=== PATIENT | female | born 1930 | race Caucasian/White ===

== ENCOUNTER 2018-04-09 08:46 | Inpatient (IN) | payer OTHER ==
[~2018-04-09] VITALS: Ht 149.9 cm; Wt 71.8 kg
[2018-04-09] MEDS ORDERED: ASPIRIN81 M4 PO (09:01)
[2018-04-09] MEDS ORDERED: COREG6.25 M1 PO (09:02)
[2018-04-09] MEDS ORDERED: CALCIUM600 M3 PO (09:02)
[2018-04-09] MEDS ORDERED: FOLIC ACID0.8 M2 PO (09:03)
[2018-04-09] MEDS ORDERED: GLUCOSAMINE1000 MG PO (09:03)
[2018-04-09] MEDS ORDERED: LOVASTATIN40 M1 PO (09:03)
[2018-04-09] MEDS ORDERED: METHOTREXATE2.5 M2 PO (09:04)
[2018-04-09] MEDS ORDERED: MULTIVITAMINS1 EAC9 PO (09:04)
[2018-04-09] MEDS ORDERED: DIOVAN40 MG PO (09:05)
[2018-04-09] MEDS ORDERED: NAPROXEN250 M1 PO (09:05)
[2018-04-09] MEDS ORDERED: PREDNISONE5 M1 PO (09:05)
--- NOTE | 2018-04-09 09:12 | ED MVC/FALL/TRAUMA COMPLAINT ---
History of Present Illness General Chief Complaint: General Adult Stated Complaint: CLINT S/P FALL - BACK PAIN Source: patient, family Exam Limitations: no limitations Vital Signs & Intake/Output Vital Signs & Intake/Output Vital Signs Date Time Temp Pulse Resp B/P B/P Pulse O2 O2 Flow FiO2 Mean Ox Delivery Rate 04/09 1605 98.2 78 17 126/59 96 Room Air 04/09 1457 98.2 75 16 124/58 97 Room Air 04/09 1354 98.2 81 14 125/58 94 Room Air 04/09 1106 97.6 79 16 124/60 100 Room Air / 0855 98 Room Air 04/09 0848 97.7 80 18 151/67 97 Room Air Allergies Coded Allergies: NO KNOWN ALLERGIES (11/08/14) Reconcile Medications Aspirin (Aspirin*) 81 MG TAB.CHEW 1 TAB PO DAILY CARDIAC (Reported) Calcium (Elemental-Fr Calcarb) (Calcium) 600 MG CALCIUM (1,500 MG) TABLET 2 TAB PO DAILY SUPPLEMENT (Reported) Carvedilol (Coreg) 6.25 MG TABLET 1 TAB PO BID CARDIAC (Reported) Folic Acid 0.8 MG TABLET 1 TAB PO DAILY SUPPLEMENT (Reported) Glucosamine Sulfate 2KCL (Glucosamine) 1,000 MG TABLET 1.5 TAB PO BID SUPPLEMENT (Reported) Lovastatin 40 MG TABLET 1 TAB PO DAILY CHOLESTEROL (Reported) Methotrexate 2.5 MG TABLET 2 TAB PO SEE ADMIN CRITERIA RA (Reported) TAKE 2 TABLETS BY MOUTH EVERY 7 DAYS Multiple Vitamin (Multivitamins) 1 EACH TABLET 1 TAB PO DAILY SUPPLEMENT ( Reported) Naproxen 250 MG TABLET 1 TAB PO DAILY PAIN (Reported) Prednisone 5 MG TABLET 1 TAB PO DAILY RA (Reported) Valsartan (Diovan) 40 MG TABLET 1 TAB PO BID HTN/HEART FAILURE (Reported) Triage Note: 87 Y/O FEMALE CLINT FROM HOME FOR EVAL OF LOW/MID BACK PAIN S/P FALL ON TUESDAY. PT ARRIVES A/O X 4, SPEAKING WITH NO DISTRESS OR DEFICITS NOTED. PT STATES SHE WAS AT HER OTHER DAUGHTERS HOUSE TUESDAY, REACHED FOR A WATER BOTTLE "AND JUST KEPT GOING". SUSTAINED FALL OUT OF BED ONTO FLOOR; WAS ABLE TO BE ASSISTED BACK INTO BED. HAS BEEN AMBULATORY SINCE FALL HOWEVER REPORTS WORSENING MID/LOW BACK PAIN. LARGE BRUISE NOTED TO R UPPER ARM, APPEARS TO BE HEALING WITH YELLOW BORDERS. PT HAS NOT TAKEN MEDS FOR PAIN TODAY AWAITING EVAL Triage Nurses Notes Reviewed? yes HPI: 87-year-old female with history of rheumatoid arthritis, hypertension, "weak left heart", and hyperlipidemia, presenting with her family reporting history of mechanical fall on Tuesday night. Patient reports she was laying in bed and went to reach over to grab something on the nightstand and had fallen onto her knees. She denies any head trauma or loss of consciousness. She denies any dizziness or lightheaded prior to falling. She reports increasing back pain over the last year, and after this fall the pain has significantly increased. She currently reports pain 10 out of 1 and worse with movement, improves with rest. Start ibuprofen and naproxen without any relief. (Noelle Batista) Past History Travel History Traveled to [place] past 21 day No Medical History Any Pertinent Medical History? 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 No (Noelle Batista) Review of Systems Review of Systems Constitutional: Reports: see HPI. Eyes: Reports: no symptoms. Ears, Nose, Throat, Mouth: Reports: no symptoms. Respiratory: Reports: no symptoms. Cardiovascular: Reports: no symptoms. Gastrointestinal/Abdominal: Reports: no symptoms. Genitourinary: Reports: no symptoms. Musculoskeletal: Reports: see HPI. Skin: Reports: no symptoms. Neurological/Psychological: Reports: no symptoms. All Other Systems: Reviewed and Negative (Noelle Batista) Physical Exam Physical Exam General Appearance: well developed/nourished, no apparent distress, alert, awake , mild distress Head: atraumatic, normal appearance Eyes: Bilateral: normal appearance, EOMI. Ears, Nose, Throat, Mouth: hearing grossly normal Neck: normal inspection, supple, full range of motion, non-tender, no bony prominences or step-offs Respiratory: normal breath sounds, chest non-tender, no respiratory distress Cardiovascular: regular rate/rhythm, normal peripheral pulses Peripheral Pulses: 3+ radial (R), 3+ radial (L), 3+ dorsalis pedis (R), 3+ dorsalis pedis (L) Gastrointestinal: soft, non-tender Back: unable to examine given patient's inability to move d/t pain. will await xray results prior to thorough exam. Extremities: normal range of motion, rheumatoid nodules on hands Neurologic/Psych: no motor/sensory deficits, awake, alert, oriented x 3, normal mood/affect Skin: intact, normal color, warm/dry Core Measures ACS in differential dx? No CVA/TIA Diagnosis No Sepsis Present: No Sepsis Focused Exam Completed? No (Hope LOVE,Noelle) Progress Differential Diagnosis: C/T/L spine injury, ext injury, pelvis injury Plan of Care: Orders Procedure Date/time Status Regular Diet 04/09 L Complete Regular Diet 04/09 D Active Weight 04/09 1702 Active Vital Signs 04/09 1702 Active Teach/Educate 04/09 170 Active Pain Treatment and Response 04/09 170 Active Nutritional Intake, Monitor 04/09 170 Active Isolation 04/09 1702 Active Intake & Output 04/09 1702 Active Patient Care Conference 04/09 1702 Active Activity/Ambulation 04/09 1702 Active Pathway - chart 04/09 1617 Active House Staff 04/09 1617 Active Patient Data 04/09 1617 Active Code Status 04/09 1617 Active Patient Data 04/09 1555 Active OXYGEN SETUP (GEN) 04/09 1358 Active Saline Lock 04/09 1358 Active Admit to inpatient 04/09 1358 Active Vital Signs 04/09 1358 Active Activity/Ambulation 04/09 1358 Active Code Status 04/09 1358 Complete URINALYSIS 04/09 0948 Complete LIPASE 04/09 0928 Complete COMPREHENSIVE METABOLIC PANEL 04/09 0928 Complete CBC WITHOUT DIFFERENTIAL 04/09 0928 Complete VTE Mechanical Prophylaxis 04/09 UNK Active Vital Signs 04/09 UNK Active Intake & Output 04/09 UNK Active Activity/Ambulation 04/09 UNK Active Current Medications Sig/Elaina Start time Last Medication Dose Stop Time Status Admin Lorazepam 0.5 MG Q4P PRN 04/09 1045 AC 04/09 (Ativan) 1043 Ketorolac 30 MG ONCE ONE 04/09 0930 CAN Tromethamine 04/09 0931 (Toradol) Laboratory Tests 04/09/18 1035: Anion Gap 7, Estimated GFR > 60, BUN/Creatinine Ratio 40.0 H, Glucose 104 H, Calcium 8.1 L, Total Bilirubin 0.7, AST 18, ALT 33, Alkaline Phosphatase 43, Total Protein 5.1 L, Albumin 2.9 L, Globulin 2.2, Albumin/Globulin Ratio 1.3, Lipase 21 L, CBC w Diff NO MAN DIFF REQ, RBC 3.89 L, MCV 93.4, MCH 30.9, MCHC 33.0, RDW 14.4, MPV 7.7, Gran % 77.2 H, Lymphocytes % 9.3 L, Monocytes % 8.5, Eosinophils % 4.6, Basophils % 0.4, Absolute Granulocytes 8.6 H, Absolute Lymphocytes 1.0 L, Absolute Monocytes 0.9 H, Absolute Eosinophils 0.5, Absolute Basophils 0 04/09/18 1012: Urine Color STRAW, Urine Clarity CLEAR, Urine pH 7.5, Ur Specific [place] 1.010, Urine Protein NEG, Urine Ketones NEG, Urine Nitrite NEG, Urine Bilirubin NEG, Urine Urobilinogen 0.2, Ur Leukocyte Esterase NEG, Ur Microscopic EXAM NOT REQUIRED, Urine Hemoglobin NEG, Urine Glucose NEG 87 year old female with back pain s/p mechanical fall 4 days ago, history significant for rheumatoid and osteoarthritis. Back pain is been occurring over the last year and increasing in severity, however after recent fall patient had reported worsening pain. -Patient's pain continues to be uncontrolled with toradol, given IV morphine 2mg and ativan. -Patient continues to report pain 7/10 in her back after meds. D/w family that imaging unremarkable compared to prior imaging, pt has known osteoarthritis and rheumatoid arthritis. -Patient administered morphine 4mg and lidoderm patch. Awaiting case management for admission or obs. -Spoke with hospitalist and MOD for admission to [facility]. Diagnostic Imaging: Viewed by Me: Radiology Read. Discussed w/RAD: Radiology Read. Radiology Impression: PATIENT: JACKSON REVELES PRESENT AGE: 87 PATIENT ACCOUNT NO: [id number] : 31 LOCATION: [facility] ORDERING PHYSICIAN: Noelle LOVE SERVICE DATE: 04/09/18 EXAM TYPE: RAD - XRY-LUMBOSACRAL SPINE 4 VIEWS EXAMINATION: XR LUMBOSACRAL SPINE CLINICAL INFORMATION: Back pain status post fall. History of rheumatoid arthritis. Evaluate for fracture. COMPARISON: 04/23/2015 TECHNIQUE: 4 views of the lumbosacral spine were obtained. FINDINGS: No acute findings within the degenerated spine compared to 04/23/2015. Chronic, mild dextroscoliosis, apex of curvature at the L3 level. The lumbar degenerative disc disease is worst (severe ) at L2-L3 and there is chronic, 0.3 cm retrolisthesis of L2 on L3. Also, the chronic minimal degenerative retrolisthesis of L1 on L2. The lumbar facet osteoarthritis is worst at L5-S1. Sacrum is unremarkable. There is chronic degenerative subarticular sclerosis/osteophytosis of the sacroiliac joints. There is dense atherosclerotic calcification of the aorta. A 0.2 cm calcification in the right abdomen could represent vascular calcification or a renal calculus. IMPRESSION: Multilevel degenerative disc disease of the lumbar spine. Also, there is facet osteoarthritis of the lumbar spine, worst at L5-S1. No acute abnormalities within the degenerated, dextroscoliotic lumbar spine compared to 04/23/2015. DICTATED BY: Jon Domingo MD DATE/TIME DICTATED:04/09 HOT DIP PLATER:NICOLASA DATE/TIME TRANSCRIBED:04/09/181057 CONFIDENTIAL, DO NOT COPY WITHOUT APPROPRIATE AUTHORIZATION. <Electronically signed in Other Vendor System> SIGNED BY: Jon Domingo MD 04/09/18 1107, PATIENT: JACKSON REVELES PRESENT AGE: 87 PATIENT ACCOUNT NO: [id number] : 31 LOCATION: [facility] ORDERING PHYSICIAN: Noelle LOVE SERVICE DATE: 04/09/18 EXAM TYPE: RAD - XRY-KNEE COMPLETE RIGHT EXAMINATION: XR KNEE, RIGHT CLINICAL INFORMATION: Right knee pain status post fall. COMPARISON: None TECHNIQUE: Four views of the right knee. FINDINGS: Alignment is normal. Joint spaces are maintained. No acute fracture, subluxation or joint effusion. Minimal marginal osteophyte formation at patellofemoral and medial tibiofemoral compartments. Soft tissues are mildly swollen in the infrapatellar region. Correlate for bruising in this area. The underlying patellar tendon is unremarkable. Atherosclerotic calcification of femoral, popliteal and leg vessels. IMPRESSION: 1. No acute osseous injury within the right knee. 2. Minimal osteoarthrosis of the patellofemoral and medial tibiofemoral compartments. 3. Soft tissues are swollen in the infrapatellar region. The underlying patellar tendon is unremarkable. DICTATED BY: Jon Doimngo MD DATE/TIME DICTATED:04/09/181103 HOT DIP PLATER:NICOLASA DATE/TIME TRANSCRIBED:04/09/181103 CONFIDENTIAL, DO NOT COPY WITHOUT APPROPRIATE AUTHORIZATION. <Electronically signed in Other Vendor System> SIGNED BY: Jon Domingo MD 04/09/18 1110 (Noelle Batista) Departure Departure Disposition: STILL A PATIENT Condition: Stable Clinical Impression Primary Impression: Back pain Qualifiers: Back pain location: thoracic back pain Chronicity: chronic Back pain laterality: midline Qualified Codes: M54.6 - Pain in thoracic spine; G89.29 - Other chronic pain Referrals: Marko Rivera MD (PCP/Family) Departure Forms: Customer Survey General Discharge Information Admission Note Spoke With: Avis Hooper MD Documentation of Exam: Documentation of any treatments & extenuating circumstances including Concerns Regarding Discharge (functional status, medication knowledge or non-compliance, living conditions, etc.) that warrant an admission rather than observation: [IV pain med control, immobility d/t pain, premature discharge medically unsafe, ortho consult potential MRI] (Noelle Batista) PA/CODING TEAM LEAD Co-Sign Statement Statement: ED Attending supervision documentation- x I saw and evaluated the patient. I have also reviewed all the pertinent lab results and diagnostic results. I agree with the findings and the plan of care as documented in the PA's/CODING TEAM LEAD's documentation. Intractable back pain, unable to ambulate [] I have reviewed the ED Record and agree with the PA's/CODING TEAM LEAD's documentation. [] Additions or exceptions (if any) to the PAs/CODING TEAM LEAD's note and plan are summarized below: [] (Ruchi SANCHEZ,Iván)
[2018-04-09 10:45] LABS: ABSOLUTE BASOPHIL COUNT 0 /CUMM (0.0-0.2); ABSOLUTE EOSINOPHIL COUNT 0.5 /CUMM (0.0-0.7); ABSOLUTE GRANULOCYTE CT 8.6 /CUMM (1.4-6.5); ABSOLUTE MONOCYTE COUNT 0.9 /CUMM (0.10-0.60); BASOPHIL % 0.4 % (0.0-2.0); EOSINOPHIL % 4.6 % (0-5); GRANULOCYTE % 77.2 % (42.2-75.2); HEMATOCRIT 36.3 % (37-47); MEAN CORPUSCULAR HGB 30.9 PG (27.0-31.0); MEAN CORPUSCULAR VOLUME 93.4 FL (81.0-99.0); MEAN PLATELET VOLUME 7.7 FL (7.4-10.4); PLATELET COUNT 248 /CUMM (130-400); RBC DISTRIBUTION WIDTH 14.4 % (11.5-14.5); RED BLOOD CELL CT 3.89 /CUMM (4.20-5.40); WHITE BLOOD CELL COUNT 11.1 /CUMM (4.8-10.8)
--- NOTE | 2018-04-09 11:07 | RADIOLOGY REPORT ---
EXAMINATION: XR LUMBOSACRAL SPINE CLINICAL INFORMATION: Back pain status post fall. History of rheumatoid arthritis. Evaluate for fracture. COMPARISON: 04/23/2015 TECHNIQUE: 4 views of the lumbosacral spine were obtained. FINDINGS: No acute findings within the degenerated spine compared to 04/23/2015. Chronic, mild dextroscoliosis, apex of curvature at the L3 level. The lumbar degenerative disc disease is worst (severe) at L2-L3 and there is chronic, 0.3 cm retrolisthesis of L2 on L3. Also, the chronic minimal degenerative retrolisthesis of L1 on L2. The lumbar facet osteoarthritis is worst at L5-S1. Sacrum is unremarkable. There is chronic degenerative subarticular sclerosis/osteophytosis of the sacroiliac joints. There is dense atherosclerotic calcification of the aorta. A 0.2 cm calcification in the right abdomen could represent vascular calcification or a renal calculus. IMPRESSION: Multilevel degenerative disc disease of the lumbar spine. Also, there is facet osteoarthritis of the lumbar spine, worst at L5-S1. No acute abnormalities within the degenerated, dextroscoliotic lumbar spine compared to 04/23/2015.
--- NOTE | 2018-04-09 11:10 | RADIOLOGY REPORT ---
EXAMINATION: XR KNEE, RIGHT CLINICAL INFORMATION: Right knee pain status post fall. COMPARISON: None TECHNIQUE: Four views of the right knee. FINDINGS: Alignment is normal. Joint spaces are maintained. No acute fracture, subluxation or joint effusion. Minimal marginal osteophyte formation at patellofemoral and medial tibiofemoral compartments. Soft tissues are mildly swollen in the infrapatellar region. Correlate for bruising in this area. The underlying patellar tendon is unremarkable. Atherosclerotic calcification of femoral, popliteal and leg vessels. IMPRESSION: 1. No acute osseous injury within the right knee. 2. Minimal osteoarthrosis of the patellofemoral and medial tibiofemoral compartments. 3. Soft tissues are swollen in the infrapatellar region. The underlying patellar tendon is unremarkable.
--- NOTE | 2018-04-09 15:54 | History & Physical ---
Howie Pa 04/09/18 1554: General Information and HPI MD Statement: I have seen and personally examined JACKSON REVELES and documented this H&P. The patient is a 87 year old F who presented with a patient stated chief complaint of back pain. Source of Information: patient, family Exam Limitations: no limitations History of Present Illness: Patient is an 87-year-old female who is brought in by ambulance for intractable back pain. Patient was seen and examined in the ER, daughter was present during the interview. According to patient and family, they were visiting family in [place] when the patient reached for something and fell out of bed. The patient then crawled to the door of the bedroom to get the attention of the other family members. According to the patient she fell on her knees, bruising them, and that was her primary complaint until yesterday. After returning home from [place], and on the morning of 04/08/18, patient was in excruciating pain and was unable to get out of bed. She called her daughter who lives a mile away , and then came into the hospital. Patient states at baseline she has lower back pain of duration 1 year, and also has a diagnosis of osteoporosis. However, she typically ambulates and performs activities of daily living without the assistance of a cane or walker. Other pertinent history includes a diagnosis of rheumatoid arthritis, which visibly affects her hands and feet. 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 Home Who Do You Live With? self Services at Home: None Primary Language: Mohawk Smoking Status: Never Smoked ETOH Use: occasional use Illicit Drug Use: denies illicit drug use Functional Ability ADLs Independent: dressing, eating, toileting, bathing. Ambulation: independent IADLs Independent: shopping, housework, finances, food prep, telephone, transportation , medication admin. Review of Systems Review of Systems Constitutional: Reports: no symptoms. EENTM: Reports: no symptoms. Cardiovascular: Reports: no symptoms. Respiratory: Reports: no symptoms. GI: Reports: no symptoms. Genitourinary: Reports: no symptoms. Musculoskeletal: Reports: back pain, joint pain (KNEES). Skin: Reports: see HPI. Neurological/Psychological: Reports: no symptoms. Hematologic/Endocrine: Reports: bruising. Immunologic/Allergic: Reports: other (rheumatoid arthritis). Post Menopausal: Yes Exam & Diagnostic Data Last 24 Hrs of Vital Signs/I&O Vital Signs Date Time Temp Pulse Resp B/P B/P Pulse O2 O2 Flow FiO2 Mean Ox Delivery Rate 04/09 1605 98.2 78 17 126/59 96 Room Air 04/09 1457 98.2 75 16 124/58 97 Room Air / 1354 98.2 81 14 125/58 94 Room Air 04/09 1106 97.6 79 16 124/60 100 Room Air / 0855 98 Room Air / 0848 97.7 80 18 151/67 97 Room Air Intake & Output 04/09 1600 /08 0800 04/09 0000 Intake Total 1000 Output Total Balance 1000 Intake, IV 1000 Patient 150 lb Weight Weight Reported by Patient Measurement Method Physical Exam General Appearance Alert, Oriented X3, Cooperative, Severe Distress Skin No Rashes, echymoses on right shoulder, right hand, bilateral knees Skin Temp/Moisture Exam: Warm/Dry HEENT Atraumatic, PERRLA, EOMI Neck Supple, No JVD, No thryomegaly Lymphatic Cervical nl Cardiovascular Regular Rate, Normal S1, Normal S2, No Murmurs Lungs Clear to Auscultation, Normal Air Movement Abdomen Soft, No Tenderness, No Hepatospenomegaly Neurological Normal Speech, Strength at 5/5 X4 Ext, Normal Tone, Sensation Intact, Cranial Nerves 3-12 NL Extremities No Clubbing, No Cyanosis, No Edema, Normal Pulses Assessment/Plan Assessment: 87-year old female brought in by daughter for intractable back pain after a mechanical fall 3 days ago. Problem list: 1. Intractable back pain Admit to [facility] floor Pain controll with Ultram 50mg orally q4hrs. Tylenol 1g po q8h Morphine 2mg IV q3hr as needed for breakthrough pain Lidoderm patch Bowel regimen to prevent opioid-induced constipation Warm compresses as desired CT scan of lumbosacral spine to r/o fractures PT consultation after the CT scan 2. Rheumatoid arthritis Continue home medications 3. Hypertension Continue home medications 4. Hyperlipidemia Continue home medications 5. DVT Prophylaxis Subcu heparin 6. Code Status Patient is full code As Ranked By This Provider Problem List: 1. Back pain Qualifiers Back pain location: thoracic back pain Chronicity: chronic Back pain laterality : midline Qualified Codes: M54.6 - Pain in thoracic spine; G89.29 - Other chronic pain Core Measures/Misc (06/19) Acute Coronary Syndrome ACS Diagnosis: No Congestive Heart Failure Congestive Heart Failure Diagnosis No Cerebrovascular Accident CVA/TIA Diagnosis: No VTE (View Protocol) VTE Risk Factors Immobility No Mechanical VTE Prophylaxis d/t N/A MechProphylax Ordered No VTE Pharm Prophylaxis d/t NA PharmProphylax ordered Sepsis (View protocol) Sepsis Present: No If YES complete Sepsis Event Note If YES complete Sepsis Event Note Alice Escobar MD 04/09/18 5415: General Information and HPI Allergies/Medications Home Med list Acetaminophen (Tylenol) 325 MG TABLET 650 MG PO Q8P PRN PAIN SCALE 1-3 (MILD) Aspirin (Aspirin*) 81 MG TAB.CHEW 1 TAB PO DAILY CARDIAC (Reported) Calcium (Elemental-Fr Calcarb) (Calcium) 600 MG CALCIUM (1,500 MG) TABLET 2 TAB PO DAILY SUPPLEMENT (Reported) Carvedilol (Coreg) 6.25 MG TABLET 1 TAB PO BID CARDIAC (Reported) Folic Acid 0.8 MG TABLET 1 TAB PO DAILY SUPPLEMENT (Reported) Glucosamine Sulfate 2KCL (Glucosamine) 1,000 MG TABLET 1.5 TAB PO BID SUPPLEMENT (Reported) Lovastatin 40 MG TABLET 1 TAB PO DAILY CHOLESTEROL (Reported) Methotrexate 2.5 MG TABLET 2 TAB PO SEE ADMIN CRITERIA RA (Reported) TAKE 2 TABLETS BY MOUTH EVERY 7 DAYS Multiple Vitamin (Multivitamins) 1 EACH TABLET 1 TAB PO DAILY SUPPLEMENT ( Reported) Naproxen 250 MG TABLET 1 TAB PO DAILY PAIN (Reported) Prednisone 5 MG TABLET 1 TAB PO DAILY RA (Reported) Tramadol HCl 50 MG TABLET 50 MG PO Q4 PRN Pain T12 fracture Valsartan (Diovan) 40 MG TABLET 1 TAB PO BID HTN/HEART FAILURE (Reported) Core Measures/Misc (06/19) Sepsis (View protocol) If YES complete Sepsis Event Note If YES complete Sepsis Event Note Resident Review Statement Resident Statement: examined this patient, discussed with sourcing intern, agreed with sourcing intern, discussed with family, reviewed EMR data (avail), discussed with nursing , discussed with case mgmt, reviewed images, amended to note Other Findings: Patient is a 87 YO F with PMH significant for 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 Patient had a history of progressive arthritis and baseline chronic back pain. She visited her daughters [facility] in [place] last week for april 05 where she sustained a fall which is purely mechanical. She was able to walk subsequently without any difficulty. Yesterday while getting up from chair she started experiencing abrupt increase in pain which bothered her throughout the night. Today morning she was unable to get up from the bed and came to ER for further evaluation. She does have shortness of breath with exertion. Vital signs at admission afebrile, heart rate 80s, blood pressure 151/57 mmHg, 97% on room air. Physical exam significant multiple bruises on both the knees, left arm. tenderness in the lumbar region. Able to move all four extremites with 5/5 strength and intact sensations. Normal heart sounds.Labs show white count of 11, BUN/creatinine 16/0.4, calcium 8.1, lipase 21, UA clear. She did show arthritis of patellofemoral and medial tibiofibular compartments. Soft tissues are swollen in the infrapatellar region. Lumbar spinal x-ray did show multilevel degenerative disc disease with facet osteoarthritis in the lumbar spine region L5-S1. Problem list 1. Intractable back pain s/p fall need to rule out compression fracture 2. 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 Hyperlipidemia 4. Rheumatoid arthritis on methotrexate and prednisone 5. Infrapatellar swelling status post fall Plan Admit to general medicine floor Intractable back pain Pain management with oral and IV Tylenol and tramadol scheduled. Narcotics as needed. No saddle anesthesia. No fecal or urinary incontinence. * CT lumbar spine to rule out compression fracture * PT after CT scan ruling out fracture Probable sytolic dysfunction of heart Stable. * Cotinue home medications including - ASA 81mg, coreg 6.25mg bid, statin, ACEI RA Patient was on Methotrexate and steroids. Steroids potentially might have decreased bone strenght resulitng osteoporotic fracture. * Hold on meds for now DVT prophylaxis SC heparin Code status Full code Sandie [email or web address] 04/09/18 1721: Core Measures/Misc (06/19) Sepsis (View protocol) If YES complete Sepsis Event Note If YES complete Sepsis Event Note Attending MD Review Statement Attending Statement Attending MD Statement: examined this patient, discuss w/resident/PA/PROOF TECHNICIAN, agreed w/resident/PA/PROOF TECHNICIAN, reviewed EMR data (avail), discussed with nursing, discussed with case mgmt, amended to note Attending Assessment/Plan: Patient seen and examined. Daughter present at the bedside. Patient apparently sustained a mechanical fall about 3 days ago. She lost her balance while he not unfamiliar environment. He was no report of loss of consciousness. There is no report of head trauma. She landed on her knees and hit her right arm. As disease progresses she complained of worsening back pain. She does have history of chronic low back pain. She has had CT imaging done a year ago. Family admits that the pain has been worsening over the past year. Despite this however at baseline she is able to ambulate without the use of a cane or walker. She does need to lean forward on the grocery cart when out shopping. Following the fall there has been no report of urinary or bowel incontinence. General appearance: Elderly lady. Well-developed in obvious painful distress. HEENT: Anicteric, no pallor, pupils equal and reactive. Neck: Supple with no jugular venous distention. Heart: S1-S2 regular with no audible murmur. Lungs: Adequate and symmetric air entry bilaterally with no added sounds. Abdomen: Nondistended with normal bowel sounds. Soft, nontender with no palpable masses. Extremities: No pedal edema. No cyanosis. No knee swelling or tenderness. Skin: Ecchymotic area right upper arm. Small ecchymotic area left knee. Problems: 1. Mechanical fall. 2. Intractable low back pain 3. Rheumatoid arthritis 4. Hypertension Plan: -Admit to inpatient General medical service. -Pain control with Ultram 50mg orally every 4 hours. Hold if drowsy. Tylenol 1 g orally every 8 hours. -Morphine 2 mg IV every 3 hours as needed breakthrough pain. Lidoderm patch -Apply warm compresses as needed. -In view of her persistent pain would recommend CT scan of the lumbosacral spine to rule out compression fractures. If positive recommend consultation with the spine surgery service. -Physical therapy consultation after the CT scan. -DVT prophylaxis with heparin subcu. -Continue her cardiac medications. -Please order a bowel regimen to prevent opioid-induced constipation.
[2018-04-09 17:16] VITALS: BP 140/68
--- NOTE | 2018-04-09 17:21 | Admission Certification ---
Admission Certification Certification Statement - As attending physician, I certify that at the time of - admission, based on clinical presentation, severity of - symptoms, need for further diagnostic testing and - therapeutic interventions, and risk of adverse outcomes - without in-hospital treatment, in my clinical assessment, - this patient requires an acute hospital stay for a minimum - of two nights or longer. I have also considered psychsocial - factors such as support system, advanced age, financial - issues, cognitive issues, and failed out-patient treatments, - past re-admission history, safety of patient, and lack of - compliance as applicable. Specific rationale supporting this admission is: Patient requires hospitalization for management of her intractable pain. She also requires further workup to rule out occult fractures.
[2018-04-09 20:21] VITALS: BP 130/60
[2018-04-09 21:34] VITALS: BP 128/66
--- NOTE | 2018-04-09 23:22 | CT SCAN REPORT ---
EXAMINATION: CT LUMBAR SPINE WITHOUT CONTRAST CLINICAL INFORMATION: Intractable back pain. Evaluate for compression deformity or soft tissue injury. COMPARISON: Radiograph from today and 04/23/2015. . TECHNIQUE: Helical non-contrast CT images were obtained through the lumbar spine and 1.25 and 2.5 mm axial reconstructions were reviewed along with sagittal and coronal MPRs. DLP: 811 mGy-cm FINDINGS: There is a mild compression deformity at the T12 level. There is approximately 20% loss of anterior vertebral body height. Minimal endplate irregularity involving the superior endplate. No retropulsion of fragments into the spinal canal. Slight dextroscoliosis centered at L2-L3. Vertebral body heights are otherwise maintained. There are no additional compression deformities. There is multilevel disc space narrowing, greatest at L2-L3 and L3-L4 with vacuum disc phenomenon present. Small multilevel endplate osteophytes. Facet arthropathy seen at the lower lumbar spine. Prominent interstitial change noted at the lung bases. Vascular calcifications are seen. Colonic diverticulosis noted. No lymphadenopathy in the retroperitoneum. There is fatty atrophy of the paraspinal musculature. No soft tissue fluid collection. IMPRESSION: Mild compression deformity of the T12 vertebral body. This appears acute, new from the radiograph performed 04/23/2015.
[2018-04-10 06:40] VITALS: BP 122/60
--- NOTE | 2018-04-10 07:21 | PN- Housestaff ---
Howie Pa 04/10/18 0721: Subjective Follow-up For: Lumbar back pain Complaints: pain scale (0-10) (8/10 in back) Subjective: Patient was seen and examined sitting in the chair. Daughter present at bedside , not daughter that was met in the emergency department. Patient continues to complain of back pain 8 out of 10 this morning. Patient is on multiple pain medications including Tylenol, Toradol and morphine. Review of Systems Constitutional: Reports: no symptoms. Musculoskeletal: Reports: back pain (8/10). Objective Last 24 Hrs of Vital Signs/I&O Vital Signs Date Time Temp Pulse Resp B/P B/P Pulse O2 O2 Flow FiO2 Mean Ox Delivery Rate 04/10 0640 97.8 82 18 122/60 94 Room Air 04/09 2332 85 18 122/61 04/09 2134 98.2 85 18 128/66 94 /08 2021 80 18 130/60 94 Room Air 04/09 1716 98.6 81 18 140/68 94 04/09 1605 98.2 78 17 126/59 96 Room Air 04/09 1457 98.2 75 16 124/58 97 Room Air Intake & Output 04/10 1600 04/10 0800 04/10 0000 Intake Total 500 120 Output Total 300 250 Balance 500 -300 -130 Intake, IV 0 Intake, Oral 500 120 Number 1 Bowel Movements Output, Urine 300 250 Patient 155 lb Weight Physical Exam General Appearance: Alert, Oriented X3, Cooperative, Mild Distress Skin: No Rashes HEENT: Atraumatic, PERRLA, EOMI Cardiovascular: Regular Rate, Normal S1, Normal S2, No Murmurs Lungs: Clear to Auscultation, Normal Air Movement Abdomen: Normal Bowel Sounds, Soft, No Tenderness, No Hepatospenomegaly Neurological: Normal Speech, Strength at 5/5 X4 Ext, Normal Tone Extremities: No Clubbing, No Cyanosis, No Edema, Normal Pulses Assessment/Plan Assessment: 87-year-old female brought in for intractable back pain secondary to mechanical fall 3 days ago from bed. Patient sustained bruises to both knees, and currently is experiencing 8 out of 10 pain in her back. Patient states she has had back pain of duration 1 year and also has a diagnosis of osteoporosis. No record found for statement of osteoporosis, and CT spine shows no evidence of this. CT spine does show evidence of osteoarthritis. Also, a mild compression deformity at T12 level. Approximately 20% loss of anterior vertebral body height. Problem list/plan: Intractable back pain Cardiac history Rheumatoid arthritis DVT prophylaxis: Subcu heparin Patient is full code Problem List: 1. Back pain 2. HTN (hypertension) 3. Hyperlipidemia 4. Rheumatoid arthritis Pain Ratin (increases to 10/10 w/ movement) Pain Location: lumbar back Pain Goal: Pain 4 or less Pain Plan: Tramadol, acetaminophen, and morphine for breakthrough pain Tomorrow's Labs & Rationales: none Sherri Thompson 04/10/18 1148: Attending MD Review Statement Attending Statement Attending MD Statement: examined this patient, discuss w/resident/PA/GOSPEL SINGER, agreed w/resident/PA/GOSPEL SINGER, discussed with family, reviewed EMR data (avail), discussed with nursing, discussed with case mgmt, reviewed images, amended to note Attending Assessment/Plan: Patient seen and examined. Daughter present at the bedside. Patient admitted here for fall and compression fracture. Patient still c/o back pain 8/10 this morning. Patient is on multiple pain medications inculding tylenol, tramadol and iv morphinr. Plan is to Optimise pain control. Offered IR guided vertebral augmentation. Consult IR. Continue Morphine 2 mg IV every 3 hours as needed breakthrough pain. Lidoderm patch. Physical therapy follow up. DVT prophylaxis with heparin. Continue her cardiac medications. Add bowel regimen if not. plan of care discussed with patient and daughter bedside.
--- NOTE | 2018-04-10 08:16 | PN- Student ---
Subjective Subjective: Patient was interviewed at bed side with daughter present. Patient complained of severe back pain that she could not sleep at night. She also had mild knee pain which did not bother her too much. Goal is alleviate her pain, and control her RA and osteoporosis. Objective Objective: Physical exam: - Patient is oriented, coorporative, and no acute distress. - Cardiac: normal S1, S2, no additional murmur nor gallop. - Lungs: CTA - Neck: mutiple lipomas on neck, but normal range of motion and strength. - Extremities: bruises on R. upper arm, L. lower leg, and both knees, sign of RA on both hands and feet. Knee exam show infrapatellar effusion, mild tenderness upon palpation, 5/5 muscle strength bilaterally both extremities. - Back: tenderness on palpation, 8/10 on severity and when moving 10/10 on severity. Imaging: Right knee Xray: mild effusion, no deformity or fracture. Lumbar Xray: degenerative disc around L5-S1. Lumbar CT: mild compression deformity at T12, disc space narrowing L2-L4, fatty atrophy of paraspinal muscles. Results Results: Laboratory Tests 04/09/18 1035: Anion Gap 7, Estimated GFR > 60, BUN/Creatinine Ratio 40.0 H, Glucose 104 H, Calcium 8.1 L, Total Bilirubin 0.7, AST 18, ALT 33, Alkaline Phosphatase 43, Total Protein 5.1 L, Albumin 2.9 L, Globulin 2.2, Albumin/Globulin Ratio 1.3, Lipase 21 L, CBC w Diff NO MAN DIFF REQ, RBC 3.89 L, MCV 93.4, MCH 30.9, MCHC 33.0, RDW 14.4, MPV 7.7, Gran % 77.2 H, Lymphocytes % 9.3 L, Monocytes % 8.5, Eosinophils % 4.6, Basophils % 0.4, Absolute Granulocytes 8.6 H, Absolute Lymphocytes 1.0 L, Absolute Monocytes 0.9 H, Absolute Eosinophils 0.5, Absolute Basophils 0 04/09/18 1012: Urine Color STRAW, Urine Clarity CLEAR, Urine pH 7.5, Ur Specific Baldwin 1.010, Urine Protein NEG, Urine Ketones NEG, Urine Nitrite NEG, Urine Bilirubin NEG, Urine Urobilinogen 0.2, Ur Leukocyte Esterase NEG, Ur Microscopic EXAM NOT REQUIRED, Urine Hemoglobin NEG, Urine Glucose NEG Assessment/Plan Assessment: Summary: 87-year-old female with PMH of hypertension, hyperlipidemia, rheumatoid arthritis, osteoporosis and chronic back pain lasting a year, presented with severe back pain and knee pain post mechanical fall. Lab showed hypocalcemia, high BUN/Cr. CT lumbar showed mild compression fracture at T12 which is new compared to previous on in 2015. PE revealed tenderness in the back and knees, mild knee effusion, otherwise good muscle strength. Problem list: - Severe back pain. - Mild knee pain. - Rheumatoid arthritis - Osteoporosis - Hyperlipidemia. - Hypertension. Plan: - Give pain meds: Tramadol, Acetaminophen and IV Morphine. - Waiting for confirmation from patient and family whether they want to do vertebral augumentation. - Follow up on Physical Therapy. - Continue home meds. - Patient is full code.
[2018-04-10 14:56] VITALS: BP 114/62
--- NOTE | 2018-04-10 17:09 | Discharge Summary ---
Visit Information Visit Dates Admission Date: 04/09/18 Hospital Course Course Attending Physician: Sherri Thompson MD Primary Care Physician: Nicole SANCHEZ,Marko Rod Allergies: Coded Allergies: NO KNOWN ALLERGIES (11/08/14) Discharge Instructions Medications at Discharge Discharge Medications: Stop taking the following medications: Aspirin (Aspirin*) 81 MG TAB.CHEW ORAL DAILY Naproxen (Naproxen) 250 MG TABLET ORAL DAILY Continue taking these medications: Calcium (Elemental-Fr Calcarb) (Calcium) 600 MG CALCIUM (1,500 MG) TABLET 2 Tablet ORAL DAILY Comments: Last Taken: 04/12/18 Time: 08 Carvedilol (Coreg) 6.25 MG TABLET 1 Tablet ORAL TWICE DAILY Comments: Last Taken: 04/12/18 Time: 0830 Folic Acid (Folic Acid) 0.8 MG TABLET 1 Tablet ORAL DAILY Comments: Last Taken: 04/12/18 Time: 0830 Glucosamine Sulfate 2KCL (Glucosamine) 1,000 MG TABLET 1.5 Tablet ORAL TWICE DAILY Comments: NOT GIVEN Lovastatin (Lovastatin) 40 MG TABLET 1 Tablet ORAL DAILY Comments: LIPITOR GIVEN IN HOSPITAL Last Taken: 04/11/18 Time: 1700 Methotrexate (Methotrexate) 2.5 MG TABLET 2 Tablet ORAL SEE INSTRUCTIONS Instructions: TAKE 2 TABLETS BY MOUTH EVERY 7 DAYS Comments: NOT GIVEN Multiple Vitamin (Multivitamins) 1 EACH TABLET 1 Tablet ORAL DAILY Comments: Last Taken: 04/12/18 Time: 0830 Prednisone (Prednisone) 5 MG TABLET 1 Tablet ORAL DAILY Comments: NOT GIVEN Valsartan (Diovan) 40 MG TABLET 1 Tablet ORAL TWICE DAILY Comments: COZAAR GIVEN IN HOSPITAL Last Taken: 04/12/18 Time: 0830 Start taking the following new medications: Tramadol HCl (Tramadol HCl) 50 MG TABLET 50 Milligram ORAL Every 4 hours as needed for Pain T12 fracture Qty = 10 No Refills Comments: Last Taken: 04/12/18 Time: 1300 Acetaminophen (Tylenol) 325 MG TABLET 650 Milligram ORAL EVERY 8 HOURS NEEDED as needed for PAIN SCALE 1-3 ( MILD) Qty = 20 No Refills Comments: NOT GIVEN
--- NOTE | 2018-04-10 17:27 | MRI REPORT ---
EXAMINATION: MR LUMBAR SPINE WITHOUT CONTRAST CLINICAL INFORMATION: T12 compression fracture since mechanical fall 3 days ago. MR clearance for IR augmentation. COMPARISON: Lumbar spine CT April 09, 2018 and lumbar spine radiographs April 23, 2015. TECHNIQUE: MRI of the lumbar spine without contrast was obtained using routine sequences. FINDINGS: There is an acute superior endplate compression fracture at T12 correlating with the recent CT findings. There is marrow edema involving the upper half of the T12 vertebral body with a discrete fracture line appreciated on the sagittal T1 and T2-weighted series paralleling the upper T12 endplate. There is mild 20% vertebral body height loss at T12. No significant retropulsion. There is also a mild inferior endplate compression fracture on the left side at T10 with mild marrow edema along the inferior T10 endplate and a discrete fracture line visualized with 10% vertebral body height loss. No retropulsion. There is also an acute to subacute left-sided superior endplate compression fracture at L1 with associated marrow edema, 10% vertebral body height loss, and a discrete fracture line visualized on the sagittal T1 and T2-weighted series. No retropulsion. No additional acute or subacute fractures. The remaining vertebral body heights are maintained. There is moderate to severe disc volume loss at L2-L3 and moderate disc volume loss at L3-L4. The conus terminates at the L1-L2 disc level. There is bilateral perinephric stranding. There are bilateral parapelvic cysts. Partially imaged uterine fibroids. L1-L2: There is a diffuse annular disc bulge and there is mild bilateral facet arthropathy. No central canal stenosis. Mild bilateral foraminal narrowing. L2-L3: Diffuse annular disc bulge with a superimposed right paracentral disc protrusion that compresses the traversing right L3 nerve root within the right subarticular zone. There is mild central canal stenosis. Mild to moderate left and mild right foraminal stenosis. L3-L4: There is a diffuse annular disc bulge and there is moderate bilateral hypertrophic facet arthropathy and ligamentum flavum thickening. Findings in concert result in moderate central canal stenosis, bilateral subarticular zone stenosis with mass effect on the traversing L4 nerve roots bilaterally, and moderate left greater than right foraminal stenosis. L4-L5: There is a diffuse annular disc bulge and there is moderate bilateral facet arthropathy and ligamentum flavum thickening. Bilateral subarticular zone stenosis with mass effect on the traversing L5 nerve roots bilaterally. Mild to moderate central canal stenosis. Moderate to severe right and moderate left foraminal stenosis. L5-S1: There is a slight diffuse annular disc bulge and there is severe bilateral facet arthropathy. There is no central canal stenosis. A right foraminal disc protrusion results in mild to moderate right-sided foraminal stenosis. IMPRESSION: - There is an acute superior endplate compression fracture at T12 associated with 20% upper endplate height loss and no significant retropulsion. - There are also very mild acute to subacute compression fractures involving the left inferior endplate of T10 and the left superior endplate of L1 without retropulsion at these levels. - At L3-L4, multifactorial degenerative changes result in moderate central canal stenosis, bilateral subarticular zone stenosis with mass effect on the traversing L4 nerve roots bilaterally, and moderate left greater than right foraminal stenosis. - At L4-L5, multifactorial degenerative changes result in mild to moderate central canal stenosis, bilateral subarticular zone stenosis with mass effect on the traversing L5 nerve roots bilaterally, and moderate to severe right and moderate left foraminal stenosis. - At L2-L3, a right paracentral disc protrusion compresses the traversing right L3 nerve root within the right subarticular zone. - Partially imaged uterine fibroids.
[2018-04-11 06:30] VITALS: BP 100/56
--- NOTE | 2018-04-11 06:43 | PN- Housestaff ---
See Addendum Subjective Follow-up For: Lumbar back pain Complaints: pain scale (0-10) (03/12) Subjective: Patient was seen and examined lying in the bed. Daughter present at bedside, another daughter than the two who have been met so far. Patient continues to endorse 8 out of 10 back pain this morning. Is on multiple medications including Tylenol, tramadol, and morphine. Family discussion needs to be had about patient's disposition plan. Family averse to patient going to short-term rehab, but strongly recommended by PT. Review of Systems Constitutional: Reports: no symptoms. Musculoskeletal: Reports: back pain. Objective Last 24 Hrs of Vital Signs/I&O Vital Signs Date Time Temp Pulse Resp B/P B/P Pulse O2 O2 Flow FiO2 Mean Ox Delivery Rate 04/11 0846 73 138/62 04/11 0846 73 138/62 04/11 0630 98.1 72 20 100/56 91 Room Air 04/10 2050 78 136/61 04/10 1456 97.8 76 18 114/62 94 Room Air Intake & Output 04/11 1600 04/11 0800 04/11 0000 Intake Total 480 Output Total 750 300 Balance -750 180 Intake, Oral 480 Output, Urine 750 300 Physical Exam General Appearance: Alert, Oriented X3, Cooperative, No Acute Distress Skin: No Rashes, No Breakdown Skin Temp/Moisture Exam: Warm/Dry HEENT: Atraumatic, PERRLA, EOMI Neck: Supple, No JVD, No thryomegaly Cardiovascular: Regular Rate, Normal S1, Normal S2, No Murmurs Lungs: Clear to Auscultation, Normal Air Movement Abdomen: Soft, No Tenderness, No Hepatospenomegaly Neurological: Normal Gait, Normal Speech, Strength at 5/5 X4 Ext, Normal Tone, Sensation Intact Extremities: No Clubbing, No Cyanosis, No Edema, Normal Pulses Assessment/Plan Assessment: 87-year-old female brought in for intractable back pain secondary to mechanical fall 3 days ago from bed. Patient sustained bruises to both knees, and currently is experiencing 8 out of 10 pain in her back. Patient states she has had back pain of duration 1 year and also has a diagnosis of osteoporosis. No record found for statement of osteoporosis, and CT spine shows no evidence of this. CT spine does show evidence of osteoarthritis. Also, a mild compression deformity at T12 level. Approximately 20% loss of anterior vertebral body height. Pain is still difficult to control, and patient is being transitioned to IV Tylenol in attempts to control her pain. Pain management will require at least another day of admission. Problem list/plan: Intractable back pain Cardiac history Rheumatoid arthritis DVT prophylaxis: Subcu heparin Patient is full code Problem List: 1. Back pain 2. Rheumatoid arthritis 3. Hyperlipidemia 4. HTN (hypertension) Pain Ratin Pain Location: lumbar back Pain Goal: Pain 4 or less Pain Plan: Tramadol, IV tylenol, morphine for breakthrough pain Tomorrow's Labs & Rationales: no labs
--- NOTE | 2018-04-11 07:21 | Patient Discharge Instructions ---
Discharge Instructions General Discharge Information Special Instructions: - Please follow up with [facility] for your appointment of IR Augmentation of T12 compression Fracture. - Please stop taking Aspirin until IR Augmentation - Please follow up with your primary care physician within 1-2 weeks of discharge. Inform your primary care physician of this admission to [facility]. - Continue your current medications per discharge instructions. - Please watch for these problems: Fever, Chills, Nausea, Vomiting, Shortness of Breath, Productive Cough, Chest Pain/Discomfort, Abdominal Pain, Active Bleeding or Bloody urine/stool. Diet Continue normal diet: Yes Activity Full Activity/No Limits: Yes Acute Coronary Syndrome Inclusion Criteria At DC or during hospital stay patient has or had the following: ACS DIAGNOSIS No Discharge Core Measures Meds if any: Prescribed or Continued at Discharge Meds if any: NOT Prescribed or Continued at Discharge Congestive Heart Failure Inclusion Criteria At DC or during hospital stay patient has or had the following: CHF DIAGNOSIS No Discharge Core Measures Meds if any: Prescribed or Continued at Discharge Meds if any: NOT Prescribed or Continued at Discharge Cerebrovascular accident Inclusion Criteria At PA or during hospital stay patient has or had the following: CVA/TIA Diagnosis No Discharge Core Measures Meds if any: Prescribed or Continued at Discharge Meds if any: NOT Prescribed or Continued at Discharge Venous thromboembolism Inclusion Criteria VTE Diagnosis No VTE Type NONE VTE Confirmed by (Test) NONE Discharge Core Measures - Per Current guidelines, there needs to be overlap - treatment for the first 5 days of Warfarin therapy. - If discharged on Warfarin prior to 5 days of - overlap therapy, the patient will need to be - assessed for post discharge needs including - *Post discharge parental anticoagulation - *Warfarin and/or parental anticoagulation education - *Follow up date to check INR post discharge At least 5 days overlap therapy as Inpatient No Meds if any: Prescribed or Continued at Discharge Note: Overlap Therapy is Warfarin and Anticoagulant Meds if any: NOT Prescribed or Continued at Discharge
[2018-04-11] MEDS ORDERED: TYLENOL325 M1 PO (08:48)
[2018-04-11] MEDS ORDERED: TRAMADOL HCL50 M1 PO (08:48)
--- NOTE | 2018-04-11 14:24 | Discharge Summary ---
Visit Information Visit Dates Admission Date: 04/09/18 Discharge Date: 04/12/2018 Hospital Course Course Attending Physician: Sherri Thompson MD Primary Care Physician: Nicole SANCHEZ,Marko Rod Hospital Course: Patient is a 87 YO F with PMH significant for probable LV systolic failure, hyperlipidemia, rheumatoid arthritis presented to [facility] after having a mechanical fall last Tuesday. Patient had a history of progressive arthritis and baseline chronic back pain. She visited her daughters [facility] in [place] last week for april 05 where she sustained a fall which is purely mechanical. She was able to walk subsequently without any difficulty. Yesterday while getting up from chair she started experiencing abrupt increase in pain which bothered her throughout the night. Today morning she was unable to get up from the bed and came to ER for further evaluation. She does have shortness of breath with exertion. Vital signs at admission afebrile, heart rate 80s, blood pressure 151/57 mmHg, 97% on room air. Physical exam significant multiple bruises on both the knees, left arm. tenderness in the lumbar region. Able to move all four extremites with 5/5 strength and intact sensations. Normal heart sounds.Labs show white count of 11, BUN/creatinine 16/0.4, calcium 8.1, lipase 21, UA clear. She did show arthritis of patellofemoral and medial tibiofibular compartments. Soft tissues are swollen in the infrapatellar region. Lumbar spinal x-ray did show multilevel degenerative disc disease with facet osteoarthritis in the lumbar spine region L5-S1. Problem List #T12 compression fracture 2/2 fall #Mechanical fall #Osteoporosis w/ PMH of Osteopenia & new onset compression fracture #PMH of rheumatoid arthritis, HFrEF, HLD, HTN Patient was admitted with adequate pain management with oral/IV Tylenol and p.o. tramadol, and underwent CT lumbar scan and later MRI to confirm the compression fracture at T12. IR consult on board recommended patient to be a candidate of IR Augmentation of the fracture site however per protocol patient has to be off Aspirin for at least 3 days, thus the procedure was deferred to be done in outpatient setting. Physical therapy recommended STR on discharge and patient should be back for IR procedures presumably on Tuesday04/17/2018. PT/INR was drawn for reference prior discharge. Patient's home meds for rheumatoid arthritis was held in concern of further decreasing bone strength. patient's cardiac medications were continued. DVT PPX Heparin SC + ALPS Heart Healthy Diet Full Code Allergies: Coded Allergies: NO KNOWN ALLERGIES (11/08/14) Pertinent Lab Results: SERVICE DATE: 04/09/18- EXAM TYPE: CAT - CT LUMB SPINE WO IV CONTRAST IMPRESSION: Mild compression deformity of the T12 vertebral body. This appears acute, new from the radiograph performed 04/23/2015. SERVICE DATE: 04/09/18 EXAM TYPE: RAD - XRY-KNEE COMPLETE RIGHT IMPRESSION: 1. No acute osseous injury within the right knee. 2. Minimal osteoarthrosis of the patellofemoral and medial tibiofemoral compartments. 3. Soft tissues are swollen in the infrapatellar region. The underlying patellar tendon is unremarkable. SERVICE DATE: 04/09/18 EXAM TYPE: RAD - XRY-LUMBOSACRAL SPINE 4 VIEWS IMPRESSION: Multilevel degenerative disc disease of the lumbar spine. Also, there is facet osteoarthritis of the lumbar spine, worst at L5-S1. No acute abnormalities within the degenerated, dextroscoliotic lumbar spine compared to 04/23/2015. SERVICE DATE: 04/10/18- EXAM TYPE: MRI - MRI-LUMBAR SPINE IMPRESSION: - There is an acute superior endplate compression fracture at T12 associated with 20% upper endplate height loss and no significant retropulsion. - There are also very mild acute to subacute compression fractures involving the left inferior endplate of T10 and the left superior endplate of L1 without retropulsion at these levels. - At L3-L4, multifactorial degenerative changes result in moderate central canal stenosis, bilateral subarticular zone stenosis with mass effect on the traversing L4 nerve roots bilaterally, and moderate left greater than right foraminal stenosis. - At L4-L5, multifactorial degenerative changes result in mild to moderate central canal stenosis, bilateral subarticular zone stenosis with mass effect on the traversing L5 nerve roots bilaterally, and moderate to severe right and moderate left foraminal stenosis. - At L2-L3, a right paracentral disc protrusion compresses the traversing right L3 nerve root within the right subarticular zone. - Partially imaged uterine fibroids. Disposition Summary Disposition Principal Diagnosis: #T12 compression fracture 2/2 fall #Mechanical fall #Osteoporosis w/ PMH of Osteopenia & new onset compression fracture #PMH of rheumatoid arthritis, HFrEF, HLD, HTN Additional Diagnosis: as above Discharge Disposition: SNF Discharge Instructions General Discharge Information Code Status: Full Code Patient's Diet: Regular Diet Patient's Activity: as tolerated Follow-Up Instructions/Appts: - Please follow up with [facility] for your appointment of IR Augmentation of T12 compression Fracture. - Please stop taking Aspirin until IR Augmentation - Please follow up with your primary care physician within 1-2 weeks of discharge. Inform your primary care physician of this admission to . - Continue your current medications per discharge instructions. - Please watch for these problems: Fever, Chills, Nausea, Vomiting, Shortness of Breath, Productive Cough, Chest Pain/Discomfort, Abdominal Pain, Active Bleeding or Bloody urine/stool. Medications at Discharge Discharge Medications: Stop taking the following medications: Aspirin (Aspirin*) 81 MG TAB.CHEW ORAL DAILY Naproxen (Naproxen) 250 MG TABLET ORAL DAILY Continue taking these medications: Calcium (Elemental-Fr Calcarb) (Calcium) 600 MG CALCIUM (1,500 MG) TABLET 2 Tablet ORAL DAILY Comments: Last Taken: 04/12/18 Time: 0830 Carvedilol (Coreg) 6.25 MG TABLET 1 Tablet ORAL TWICE DAILY Comments: Last Taken: 04/12/18 Time: 0830 Folic Acid (Folic Acid) 0.8 MG TABLET 1 Tablet ORAL DAILY Comments: Last Taken: 04/12/18 Time: 0830 Glucosamine Sulfate 2KCL (Glucosamine) 1,000 MG TABLET 1.5 Tablet ORAL TWICE DAILY Comments: NOT GIVEN Lovastatin (Lovastatin) 40 MG TABLET 1 Tablet ORAL DAILY Comments: LIPITOR GIVEN IN HOSPITAL Last Taken: 04/11/18 Time: 1700 Methotrexate (Methotrexate) 2.5 MG TABLET 2 Tablet ORAL SEE INSTRUCTIONS Instructions: TAKE 2 TABLETS BY MOUTH EVERY 7 DAYS Comments: NOT GIVEN Multiple Vitamin (Multivitamins) 1 EACH TABLET 1 Tablet ORAL DAILY Comments: Last Taken: 04/12/18 Time: 0830 Prednisone (Prednisone) 5 MG TABLET 1 Tablet ORAL DAILY Comments: NOT GIVEN Valsartan (Diovan) 40 MG TABLET 1 Tablet ORAL TWICE DAILY Comments: COZAAR GIVEN IN HOSPITAL Last Taken: 04/12/18 Time: 0830 Start taking the following new medications: Tramadol HCl (Tramadol HCl) 50 MG TABLET 50 Milligram ORAL Every 4 hours as needed for Pain T12 fracture Qty = 10 No Refills Comments: Last Taken: 04/12/18 Time: 1300 Acetaminophen (Tylenol) 325 MG TABLET 650 Milligram ORAL EVERY 8 HOURS NEEDED as needed for PAIN SCALE 1-3 ( MILD) Qty = 20 No Refills Comments: NOT GIVEN Copies To: Nicole SANCHEZ,Marko Rod Attending MD Review Statement Documenting Attending: Jay SANCHEZ,Sherri
[2018-04-11 14:25] VITALS: BP 105/56
--- NOTE | 2018-04-11 16:32 | INTERVENTIONAL RADIOLOGY RPT ---
NEW PATIENT CONSULTATION FOR VERTEBRAL AUGMENTATION TIME OF VISIT: 20 minutes with greater than 50% of time spent counseling patient regarding results and treatment plan. HISTORY OF PRESENT ILLNESS: Ms. Browning is a very pleasant 87-year-old female who presented to the emergency room on April 09 with severe back pain. She notes falling out of bed a few days prior while on a trip to [place]; however, her back pain worsened in severity over the following days and on the morning of April 08 her back pain was intractable and required transportation to the emergency room by an ambulance. The patient described her pain at that time as a 10 out of 10. Since being in the hospital, her pain has been treated with tramadol, Tylenol and morphine in addition to a Lidoderm patch. The patient reports mild improvement in her back pain; however, her back pain spikes to an 8 out of 10 with movement. The patient notes she has had chronic back pain for one year but nothing like her current pain. She does have a history of osteoporosis. MRI imaging showed an acute T12 compression fracture. PAST MEDICAL HISTORY: 1. Hypertension. 2. Hyperlipidemia. 3. Rheumatoid arthritis. CURRENT MEDICATIONS: 1. Aspirin 81 mg by mouth daily. 2. Calcium 600 mg tablet, 2 tablets by mouth daily. 3. Carvedilol 6.25 mg tablet by mouth twice a day. 4. Folic acid 0.8 mg tablet daily. 5. Glucosamine 1000 mg tablet 1.5 tablets by mouth twice a day. 6. Lovastatin 40 mg tablet by mouth daily. 7. Methotrexate 2.5 mg tablet 2 tablets by mouth every 7 days. 8. Naproxen 250 mg tablet 1 tab by mouth daily when necessary pain. 9. Prednisone 5 mg tablet 1 tablet by mouth daily. 10. Valsartan 40 mg tablet 1 tablet by mouth twice a day. 11. Multivitamin by mouth daily. 12. Lipitor 10 mg by mouth daily. 13. Senokot 187 mg by mouth daily. 14. Colace 100 mg by mouth twice a day. ALLERGIES: No known drug allergies. FAMILY HISTORY: Noncontributory. SOCIAL HISTORY: Alcohol Use: Social. Tobacco Use: Never smoked. Occupation: Retired. REVIEW OF SYSTEMS: General: Patient reports no fevers, chills or other constitutional symptoms. Cardiovascular/Vascular: Patient denies chest pain, irregular heartbeats, or palpitations. Respiratory: Patient denies any history of pneumonia, chronic cough, orthopnea, wheezing, shortness of breath or production of sputum. Gastrointestinal: denies nausea, no vomiting, constipation or diarrhea. Genitourinary: Patient denies hematuria, painful urination and kidney stones. Musculoskeletal: Patient reports back and knee pain. Neurological: Patient denies history of headaches, no dizziness, no recent fainting, no muscle spasms, no loss of consciousness. HEENT: Patient denies, sinus problems and sore throat. Hematologic/Lymphatic: Denies history of anemia, bleeding tendencies or clotting tendencies. Allergic/immunology: Rheumatoid arthritis. Anesthesia: Patient denies any previous reaction to anesthetics or sedation. PHYSICAL EXAMINATION: Blood Pressure: 126/59. Pulse: 78. Temperature: 98.2 F. Weight: 150 pounds. Respiratory Rate: 17. O2 Saturation: 96 room air. GENERAL: Well-appearing, no acute distress. HEENT: Normocephalic atraumatic, EOMI, mucous membranes moist. Pulmonary: breath sounds are clear to auscultation globally. Mild diffuse wheezes. CV: S1, S2 regular rate and rhythm. No murmurs, rubs or gallops. Musculoskeletal: Tenderness to palpation at the thoracolumbar junction midline. NEUROLOGICAL: Sensorimotor grossly intact. LABORATORY: Platelet count: 248. INR: Pending. IMAGING REVIEW: MRI lumbar spine 04/10/2018. IMPRESSION: There is an acute superior endplate compression fracture at T12 associated with 20% upper endplate height loss and no significant retropulsion. There are also very mild acute to subacute compression fractures involving the left inferior endplate of T10 and the left superior endplate of L1 without retropulsion at these levels. At L3-L4, multifactorial degenerative changes result in moderate central canal stenosis, bilateral subarticular zone stenosis with mass effect on the traversing L4 nerve roots bilaterally, and moderate left greater than right foraminal stenosis. At L4-L5, multifactorial degenerative changes result in mild to moderate central canal stenosis, bilateral subarticular zone stenosis with mass effect on the traversing L5 nerve roots bilaterally, and moderate to severe right and moderate left foraminal stenosis. At L2-L3, a right paracentral disc protrusion compresses the traversing right L3 nerve root within the right subarticular zone. Partially imaged uterine fibroids. ASSESSMENT: Ms. Browning is a very pleasant 87-year-old female with an acute superior endplate compression fracture of the T12 thoracic vertebral body. There is approximately 20% height loss at this level. Physical examination corresponds with imaging findings as the patient is tender to palpation midline at the thoracolumbar junction. I had a long discussion today with the patient and her daughter about the benefits a vertebral augmentation. The benefits include pain relief, stabilization of the fracture, and prevention of further collapse. I also explained the risks of the procedure. The risks discussed include nontarget cement, nerve injury, hematoma which could occur within the epidural space, CSF leak, DVT/PE, and rarely paralysis. Additionally, I explained the full benefit of the procedure may take up to 2 months. There may also be increased pain in the first few days following the procedure. The alternatives to vertebral augmentation include ongoing conservative management utilizing medications for pain control. The patient and her daughter agree they would like to pursue vertebral augmentation of the T12 level. PLAN: 1. Obtain INR. 2. Vertebral augmentation of the T12 level will be scheduled once the patient has been off aspirin and naproxen for a satisfactory time period.
[2018-04-11 22:46] VITALS: BP 104/58
--- NOTE | 2018-04-12 06:56 | PN- Housestaff ---
Howie Pa 04/12/18 0656: Subjective Follow-up For: Back pain Complaints: pain scale (0-10) (6/10) Subjective: Patient was seen and examined at the bedside. Daughter was present at the bedside. The patient is improved from yesterday in terms of her pain control, endorsing only 6 out of 10 pain. States that she saw physical therapy yesterday and that helped her walk around. Looking forward to pursuing vertebral augmentation after consultation with Dr. Canseco yesterday. Plan for discharge is still unclear with the patient and family. Review of Systems Constitutional: Reports: no symptoms. Respiratory: Reports: wheezing (hx of asthma). Musculoskeletal: Reports: back pain. Objective Last 24 Hrs of Vital Signs/I&O Vital Signs Date Time Temp Pulse Resp B/P B/P Pulse O2 O2 Flow FiO2 Mean Ox Delivery Rate 04/12 0714 98.0 88 17 106/60 92 04/12 0627 92 Room Air 04/11 2246 98.2 80 16 104/58 93 04/11 2022 72 112/60 04/11 1425 98.1 72 16 105/56 92 Room Air 04/11 1408 Room Air 04/11 0846 73 138/62 04/11 0846 73 138/62 Intake & Output 04/12 1600 04/12 0800 04/12 0000 Intake Total 240 Output Total 400 Balance -160 Intake, Oral 240 Output, Urine 400 Patient 158 lb Weight Physical Exam General Appearance: Alert, Oriented X3, Cooperative, No Acute Distress Skin: No Rashes, No Breakdown Skin Temp/Moisture Exam: Warm/Dry HEENT: Atraumatic, PERRLA, EOMI Neck: Supple, No JVD, No thryomegaly Cardiovascular: Regular Rate, Normal S1, Normal S2, No Murmurs Lungs: diffuse bilateral wheezing Abdomen: Soft, No Tenderness, No Hepatospenomegaly Neurological: Normal Speech, Strength at 5/5 X4 Ext, Normal Tone Extremities: No Clubbing, No Cyanosis, No Edema, Normal Pulses Assessment/Plan Assessment: 87-year-old female brought in for intractable back pain secondary to mechanical fall 3 days ago from bed. Patient sustained bruises to both knees, and currently is experiencing 8 out of 10 pain in her back. Patient states she has had back pain of duration 1 year and also has a diagnosis of osteoporosis. No record found for statement of osteoporosis, and CT spine shows no evidence of this. CT spine does show evidence of osteoarthritis. Also, a mild compression deformity at T12 level. Approximately 20% loss of anterior vertebral body height. Pain is still difficult to control, and patient is being transitioned to IV Tylenol in attempts to control her pain. Pain is now well controlled. Patient will be discharged to [facility] today. Problem list/plan: Intractable back pain amenable family agree to procedure Cardiac history Rheumatoid arthritis DVT prophylaxis: Subcu heparin Patient is full code Problem List: 1. Back pain 2. Rheumatoid arthritis 3. HTN (hypertension) 4. Hyperlipidemia Pain Ratin Pain Location: back Pain Goal: Pain 4 or less Pain Plan: Tramadol, Tylenol, Morphine for breakthrough pain Tomorrow's Labs & Rationales: none Discharge Plan Discharge Disposition: STR/NH Stable for Discharge? Yes Anticipated Discharge (Day): today Sherri Thompson 04/12/18 1134: Attending MD Review Statement Attending Statement Attending MD Statement: examined this patient, discuss w/resident/PA/RELIGION DEPARTMENT CHAIR, agreed w/resident/PA/RELIGION DEPARTMENT CHAIR, discussed with family, reviewed EMR data (avail), discussed with nursing, discussed with case mgmt, reviewed images, amended to note Attending Assessment/Plan: Patient is clinically imprving with pain control. She is able to walk to bathroom with assist. PT recommend STR placement. IR consulted and planned vertebral augmentation likely Tuesday scheduled as outpatient. Pain conrolled on tylenol and tramadol. Would avoid high dose opiates and use tramadol only if needed. (aspirin held and NSAIDs avoided in anticipation of vertebroplasty as requested by IR). Update family regarding dsicharge plans. Anticipate discharge soon to STR.
[2018-04-12 07:14] VITALS: BP 106/60
--- NOTE | 2018-04-12 11:31 | PN- Student ---
Subjective Subjective: Hospital day 3: Patient was interviewed at bed side. Patient seemed much more better, smiling on her face when I greeted her this morning. Her back pain was under control as she switched from Tramadol to IV Tylenol. She also did not have any bowel movement since Tuesday. She had an episode of asthma yesterday night and received her Albuterol at 6:00AM. Goal is continuing to keep her back pain under control, control her asthma and confirm on her PT and vetebral augmentation. Objective Objective: Physical exam: -Patient is oriented, alert, and coorporative. -Cardiac: normal S1, S2, no additional murmur or gallop. -Lungs: diffuse wheeze bilaterally. -Extremities: 5/5 strength bilaterally on both extremities, bruises is getting healed on her right upper arm, no pain or tenderness on both knees. -Spines: moderate back pain under control, rating 6/10 Assessment/Plan Assessment: Summary: 87-year-old female patient with PMH of hypertension, hyperlipidemia, rheumatoid arthritis, and asthma presented with back pain secondary to mechanical fall. Back pain was under control. CT lumbar showed compression fracture at T12. PE this morning showed billarterally diffuse wheeze. Problem list: -Back pain. -Asthma. -Hypertension. -Hyperlipidemia. -Rheumatoid arthritis. Plan: -DC IV Tylenol, change to PO Tylenol. -Confirm with patient and family on vetebral augmentation, then schedule the procedure and follow up on PT. -Continue home meds. -DVT prophylaxis with Alps. -Patient is full code.
[2018-04-12 13:23] VITALS: BP 106/60
[2018-04-12 14:12] VITALS: BP 100/60
[2018-04-12 14:58] LABS: PT 12.1 SEC (9.4-12.5)
== END 2018-04-12 15:50 | DRG 552 ==
LOC: ERH 08:46 → ERHI 13:58 → 2NB 13:58 → ENRESERV 16:16 → ENTRNSPT 16:29 → EDTRNSPTSTS 16:45 → 2NB 16:51 → CMPTRNSPT 16:59 → 2NB 04-10 07:46
PROVIDERS: Physician Assistant
DX: S22.089A Unspecified fracture of T11-T12 vertebra, initial encounter for closed fracture (principal); M06.9 Rheumatoid arthritis, unspecified; M81.0 Age-related osteoporosis without current pathological fracture; E78.5 Hyperlipidemia, unspecified; I10 Essential (primary) hypertension
CPT/HCPCS: 2NBSP; 72148; 36592; 72110; 73562-RT; 81003; 96361; 96374; 96375; 96376; 97110-GO; 97116-GO; 97161-GP; 97165-GO; 97530-GO; J0131; J1644; J1885; J3490